=== PATIENT | male | born 1990 | race Caucasian/White ===

== ENCOUNTER 2017-03-29 03:03 | Emergency (ER) | payer OTHER ==
[2017-03-29 03:16] VITALS: BP 130/83; PULSE 69; RESP 20; TEMP 98.4; O2SAT 99
--- NOTE | 2017-03-29 03:30 | PD ---
HPI Chief Complaint: Psychiatric Symptoms Time Seen by Provider: 03:14 Travel History International Travel<30 days: No Contact w/Intl Traveler<30days: No Traveled to known affect area: No History of Present Illness HPI 27-year-old male is brought to the emergency department under a Estevez act for psychiatric evaluation. Patient has been using unknown amount of unknown drugs. He was found running [address] [employer] [address]. He is crying and states he does not know what happened. He states that he "feels weird." Denies psychiatric history. Denies suicidal homicidal ideations. Denies any medical history. He has no other symptoms reported. PFSH Past Medical History Medical History: Denies Significant Hx Social History Alcohol Use: Yes Tobacco Use: Yes Substance Use: Yes Allergies-Medications (Allergen,Severity, Reaction): Coded Allergies: erythromycin base (Unverified Allergy, Unknown, 03/29/17) penicillin G (Unverified Allergy, Unknown, 03/29/17) Reported Meds & Prescriptions Reported Meds & Active Scripts Active Reported Buprenorphine (Buprenorphine HCl) 8 Mg Subl 8 Mg SL TID Review of Systems Except as stated in HPI: all other systems reviewed are Neg Physical Exam Narrative GENERAL: Well nourished male patient, tearful, anxious appearing; in no acute distress SKIN: Focused skin assessment warm/dry. Track montoya extending from R antecubital space HEAD: Atraumatic. Normocephalic. EYES: Pupils equal and round. No scleral icterus. No injection or drainage. ENT: No nasal bleeding or discharge. Mucous membranes pink and moist. NECK: Trachea midline. No JVD. CARDIOVASCULAR: Regular rate and rhythm. No murmur appreciated. RESPIRATORY: No accessory muscle use. Clear to auscultation. Breath sounds equal bilaterally. GASTROINTESTINAL: Abdomen soft, non-tender, nondistended. Hepatic and splenic margins not palpable. MUSCULOSKELETAL: No obvious deformities. No clubbing. No cyanosis. No edema. NEUROLOGICAL: Awake and alert. No obvious cranial nerve deficits. Motor grossly within normal limits. Normal speech. Data Data Last Documented VS Vital Signs Date Time Temp Pulse Resp B/P (MAP) Pulse Ox O2 Delivery O2 Flow Rate FiO2 03/29/17 03:16 98.4 69 20 130/83 (99) 99 Orders Orders Complete Blood Count With Diff (03/29/17 03:15) Basic Metabolic Panel (Bmp) (03/29/17 03:15) Psych Screen (03/29/17 03:15) Drug Screen, Random Urine (03/29/17 03:15) Alcohol (Ethanol) (03/29/17 03:15) Labs Laboratory Tests Test 03/29/17 03:30 White Blood Count 8.6 TH/MM3 Red Blood Count 4.45 MIL/MM3 Hemoglobin 13.8 GM/DL Hematocrit 40.5 % Mean Corpuscular Volume 90.9 FL Mean Corpuscular Hemoglobin 31.0 PG Mean Corpuscular Hemoglobin Concent 34.1 % Red Cell Distribution Width 12.7 % Platelet Count 235 TH/MM3 Mean Platelet Volume 7.5 FL Neutrophils (%) (Auto) 53.2 % Lymphocytes (%) (Auto) 27.3 % Monocytes (%) (Auto) 16.3 % Eosinophils (%) (Auto) 2.8 % Basophils (%) (Auto) 0.4 % Neutrophils # (Auto) 4.6 TH/MM3 Lymphocytes # (Auto) 2.4 TH/MM3 Monocytes # (Auto) 1.4 TH/MM3 Eosinophils # (Auto) 0.2 TH/MM3 Basophils # (Auto) 0.0 TH/MM3 CBC Comment DIFF FINAL Differential Comment MDM Medical Decision Making Medical Screen Exam Complete: Yes Emergency Medical Condition: Yes Medical Record Reviewed: Yes Differential Diagnosis Intoxication versus polysubstance abuse versus mood disorder versus personality disorder Narrative Course 27-year-old male presents to emergency department under Estevez act for psychiatric evaluation. Patient appears under the influence of unknown substance. He is tearful and anxious. Denies suicidal or homicidal ideations. Laboratory Tests Test 03/29/17 03:30 White Blood Count 8.6 TH/MM3 Red Blood Count 4.45 MIL/MM3 Hemoglobin 13.8 GM/DL Hematocrit 40.5 % Mean Corpuscular Volume 90.9 FL Mean Corpuscular Hemoglobin 31.0 PG Mean Corpuscular Hemoglobin Concent 34.1 % Red Cell Distribution Width 12.7 % Platelet Count 235 TH/MM3 Mean Platelet Volume 7.5 FL Neutrophils (%) (Auto) 53.2 % Lymphocytes (%) (Auto) 27.3 % Monocytes (%) (Auto) 16.3 % Eosinophils (%) (Auto) 2.8 % Basophils (%) (Auto) 0.4 % Neutrophils # (Auto) 4.6 TH/MM3 Lymphocytes # (Auto) 2.4 TH/MM3 Monocytes # (Auto) 1.4 TH/MM3 Eosinophils # (Auto) 0.2 TH/MM3 Basophils # (Auto) 0.0 TH/MM3 CBC Comment DIFF FINAL Differential Comment Patient is medically cleared to a psychiatric screening for further evaluation and disposition. Mental health screening discussed with the patient. Psychiatric screen ordered. Diagnosis Primary Impression: Polysubstance abuse Additional Impression: Mood disorder, drug-induced Condition: Stable Promise Weaver Mar 29, 2017 03:30
[2017-03-29] MEDS ORDERED: BUPR8SUB SL (03:35)
[2017-03-29 03:44] LABS: AUTOMATED NEUTROPHIL # 4.6 TH/MM3 (1.8-7.7); BASOPHIL % 0.4 % (0.0-2.0); EOSINOPHIL # 0.2 TH/MM3 (0-0.4); EOSINOPHIL % 2.8 % (0.0-4.0); HEMATOCRIT 40.5 % (39.0-51.0); HEMO FLAGS DIFF FINAL; LYMPH % 27.3 % (9.0-44.0); LYMPHOCYTE # 2.4 TH/MM3 (1.0-4.8); MEAN CELL VOLUME 90.9 FL (80.0-100.0); MEAN CORPUSCULAR HGB CONC 34.1 % (32.0-36.0); MONO % 16.3 % (0.0-8.0); NEUT % 53.2 % (16.0-70.0); PLATELET COUNT 235 TH/MM3 (150-450); RED BLOOD COUNT 4.45 MIL/MM3 (4.50-5.90); RED CELL DISTRIBUTION WIDTH 12.7 % (11.6-17.2); WHITE BLOOD COUNT 8.6 TH/MM3 (4.0-11.0)
[2017-03-29 04:08] LABS: ANION GAP 7 MEQ/L (5-15); BICARBONATE 28.5 MEQ/L (21.0-32.0); BLOOD UREA NITROGEN 14 MG/DL (7-18); CHLORIDE 104 MEQ/L (98-107); GLOMERULAR FILTRATION RATE 93 ML/MIN (>89); POTASSIUM 3.3 MEQ/L (3.5-5.1); SODIUM (NA) 139 MEQ/L (136-145)
[2017-03-29 04:16] LABS: ALCOHOL LESS THAN 3 MG/DL (0-5)
[2017-03-29] MEDS ORDERED: POTASSIUM CHLORIDE 10 MEQ CONTROLLED RELEASE TAB PO ONE (05:15)
[2017-03-29 19:07] VITALS: BP 110/65; PULSE 65; RESP 16; O2SAT 96
--- NOTE | 2017-03-29 19:23 | PD ---
Data Data Last Documented VS Vital Signs Date Time Temp Pulse Resp B/P (MAP) Pulse Ox O2 Delivery O2 Flow Rate FiO2 03/29/17 21:05 88 18 126/87 (100) 98 03/29/17 19:07 Room Air 03/29/17 03:16 98.4 Orders Orders Complete Blood Count With Diff (03/29/17 03:15) Basic Metabolic Panel (Bmp) (03/29/17 03:15) Psych Screen (03/29/17 03:15) Drug Screen, Random Urine (03/29/17 03:15) Alcohol (Ethanol) (03/29/17 03:15) Potassium Chloride (Kcl) (03/29/17 05:15) Diet Regular Basic (03/29/17 Breakfast) Labs Laboratory Tests Test 03/29/17 03:30 03/29/17 18:00 White Blood Count 8.6 TH/MM3 Red Blood Count 4.45 MIL/MM3 Hemoglobin 13.8 GM/DL Hematocrit 40.5 % Mean Corpuscular Volume 90.9 FL Mean Corpuscular Hemoglobin 31.0 PG Mean Corpuscular Hemoglobin Concent 34.1 % Red Cell Distribution Width 12.7 % Platelet Count 235 TH/MM3 Mean Platelet Volume 7.5 FL Neutrophils (%) (Auto) 53.2 % Lymphocytes (%) (Auto) 27.3 % Monocytes (%) (Auto) 16.3 % Eosinophils (%) (Auto) 2.8 % Basophils (%) (Auto) 0.4 % Neutrophils # (Auto) 4.6 TH/MM3 Lymphocytes # (Auto) 2.4 TH/MM3 Monocytes # (Auto) 1.4 TH/MM3 Eosinophils # (Auto) 0.2 TH/MM3 Basophils # (Auto) 0.0 TH/MM3 CBC Comment DIFF FINAL Differential Comment Blood Urea Nitrogen 14 MG/DL Creatinine 0.96 MG/DL Random Glucose 106 MG/DL Calcium Level 8.9 MG/DL Sodium Level 139 MEQ/L Potassium Level 3.3 MEQ/L Chloride Level 104 MEQ/L Carbon Dioxide Level 28.5 MEQ/L Anion Gap 7 MEQ/L Estimat Glomerular Filtration Rate 93 ML/MIN Ethyl Alcohol Level LESS THAN 3 MG/DL Urine Opiates Screen NEG Urine Barbiturates Screen NEG Urine Amphetamines Screen NEG Urine Benzodiazepines Screen NEG Urine Cocaine Screen NEG Urine Cannabinoids Screen POS MDM Medical Record Reviewed: Yes Supervised Visit with GUANAKITO: Yes Narrative Course CBC & BMP Diagram 03/29/17 03:30 Calcium Level 8.9 UTOX: positive for cannabinoids Psychiatry has lifted BA. Pt ambulatory. Pt without complaints. Pt ready for discharge. Diagnosis Primary Impression: Polysubstance abuse Additional Impression: Mood disorder, drug-induced Referrals: [facility] Patient Instructions: General Instructions, Polysubstance Abuse (ED) Departure Forms: Tests/Procedures Disposition: 01 DISCHARGE HOME Condition: Stable John Mauro MD Mar 29, 2017 19:23
[2017-03-29 21:05] VITALS: BP_SYST 126; BP_SYST 16; BP_DIAS 87
== END 2017-03-29 21:14 | disposition home or self-care (01) ==
LOC: NEPD 03:03 → NEDAMB 21:14
DX: F19.10 Other psychoactive substance abuse, uncomplicated (principal); F39 Unspecified mood [affective] disorder; F12.90 Cannabis use, unspecified, uncomplicated; Z72.0 Tobacco use
CPT/HCPCS: 80048; 80307; 85025; 99284